=== PATIENT | female | born 1980 | race Caucasian/White ===

== ENCOUNTER 2016-09-12 20:35 | Emergency (ER) ==
[2016-09-12] MEDS ORDERED: ZOFRAN IV ONE (22:42)
[2016-09-12] MEDS ORDERED: NS 1,000 ML IV ONE (22:42)
[2016-09-12] MEDS ORDERED: G.I. COCKTAIL PO ONE (22:42)
[2016-09-12] MEDS ORDERED: MORPHINE IV ONE (22:42)
--- NOTE | 2016-09-12 22:45 | PROVIDER DOCUMENTATION ---
HPI-Abdominal Pain/GI Problem - General Source: patient - History of Present Illness-ABD Abdominal Pain Onset Location: reports: epigastric Pain Radiation: reports: no radiation Quality of Pain: reports: aching Severity in ED: reports: moderate, severe Onset/Duration: reports: 2 days ago Timing: reports: still present Activities at Onset: reports: none Exposure to sick contacts?: No Modifying Factors: improves with: nothing Associated Symptoms: reports: diarrhea, nausea, vomiting. denies: chest pain, fatigue, fever/chills, shortness of breath <Mark Bah - Last Filed: 09/12/16 22:40> <Sara Elena - Last Filed: 09/13/16 02:17> - General Chief Complaint: Epigastric Pain Stated Complaint: ABD PAIN Time Seen by Provider: 09/12/16 22:20 Allergies/Adverse Reactions: Patient Allergies Allergy/AdvReac Type Severity Reaction Status Date / Time amoxicillin trihydrate * Allergy Severe HIVES Verified 05/23/15 15:18 [From Augmentin] levofloxacin [From Levaquin] Allergy Severe HIVES Verified 05/23/15 15:18 moxifloxacin HCl * Allergy Severe HIVES Verified 05/23/15 15:18 [From Avelox] oseltamivir phosphate * Allergy Severe ANAPHYLAXIS Verified 05/23/15 15:18 [From Tamiflu] Penicillins Allergy Severe HIVES Verified 05/23/15 15:18 potassium clavulanate * Allergy Severe HIVES Verified 05/23/15 15:18 [From Augmentin] Sulfa (Sulfonamide Allergy Severe HIVES Verified 05/23/15 15:18 Antibiotics) [Sulfa(Sulfonamide Antibiotics)] antiacids Allergy Severe HIVES Uncoded 05/23/15 15:18 Home Medications: Albuterol 2.5MG/Ipratrop 0.5MG [Duoneb] 3 ml INH Q4-6H PRN PRN 03/18/15 Albuterol Sulfate [Proair Hfa] 8.5 gm IH 4XDAY 03/18/15 Budesonide/Formoterol Fumarate [Symbicort 160-4.5 Mcg Inhaler] 10.2 gm IH BID Cetirizine HCl [Zyrtec] 5 mg PO DAILY 03/18/15 Fluticasone 50 Mcg Nasal [place] [Flonase] 2 spray SEBAS BID 03/18/15 Gabapentin [Neurontin] 300 mg PO DAILY 03/18/15 Omalizumab [Xolair] 150 mg IM ORDERED 03/18/15 Tramadol HCl [Ultram] 50 mg PO Q4-6H PRN PRN 03/18/15 Zolmitriptan [Zomig] 5 mg PO BID PRN 03/18/15 - History of Present Illness-ABD Nature of Presenting Problems: 36 y/o F presents to the ED with abdominal pain for 2 days with diarrhea. Pt says she went to [place] urgent care today and got a liter of fluid and Zofran. She got home and tonight when she ate she vomited again. 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 (Mark Bah) Review of Systems - Adult - REVIEW OF SYSTEMS - ADULT Constitutional: denies: chills, fever Eyes: reports: no symptoms reported Ears, Nose, Mouth & Throat: reports: no symptoms reported Cardiovascular: denies: chest pain, edema Respiratory: denies: cough, shortness of breath, wheezing Gastrointestinal: reports: abdominal pain, diarrhea, nausea, vomiting Genitourinary: reports: no symptoms reported Musculoskeletal: reports: no symptoms reported Integumentary: reports: no symptoms reported Neurological: reports: no symptoms reported Psychiatric: reports: no symptoms reported Endocrine: reports: no symptoms reported Hematologic/Lymphatic: reports: no symptoms reported Allergic/Immunologic: reports: no symptoms reported All Other Systems: Reviewed and Negative <Mark Bah - Last Filed: 09/12/16 22:40> Past History - Adult - PAST MEDICAL HISTORY-ADULT Review of Records: reports: Old Records Reviewed, Nursing Assessment Review, Medications Reviewed, Social history reviewed & non-contributory. Major Childhood Illnesses: reports: denies history Cardiovascular: reports: denies history Respiratory: reports: denies history Gastrointestinal: reports: denies history Obstetrical/Gynecological: reports: denies history Genitourinary: reports: denies history Musculoskeletal: reports: denies history Neurological: reports: denies history Endocrine/Immune: reports: denies history Other Conditions: reports: denies history - PRIOR SURGERIES/PROCEDURES Surgical/Procedure History: reports: , tonsillectomy, orthopedic ( extremity) (right knee), other (gallbladder) - FAMILY HISTORY Family History: reviewed, not pertinent <Mark Bah - Last Filed: 09/12/16 22:40> Physical Exam-General - PHYSICAL EXAM-ADULT Initial Vital Signs Reviewed: Yes - CONSTITUTIONAL General Appearance: appears well, alert, no apparent distress - EYES Eyes: PERRL/EOMI. negative: pink conjunctivae - HEAD, EARS, NOSE, MOUTH & THROAT HENMT: moist mucous membranes, normal ENT inspection, TMs normal, pharynx normal - NECK Neck: non-tender, full range of motion, supple - RESPIRATORY Respiratory: lungs clear, normal breath sounds, no pleuratic chest pain, no respiratory distress, no accessory muscle use - CARDIOVASCULAR Cardiovascular: normal peripheral pulses, regular rate, rhythm - GASTROINTESTINAL (ABDOMEN) Abdominal Exam: normal bowel sounds, soft, tenderness (gernalized tendrness worse over epigastric). negative: distended, guarding, rebound - MUSCULOSKELETAL Back Exam: normal inspection, no CVA tenderness, no vertebral tenderness Extremity: normal range of motion, non-tender, normal gait, normal inspection - SKIN Integumentary: normal color, normal turgor, warm/dry - NEUROLOGIC Neurologic: grossly normal, no motor/sensory deficits - PSYCHIATRIC Psych/Mental Status: normal mood/affect, normal thought content, normal thought process, oriented x 3 <Mark Bah - Last Filed: 09/12/16 22:40> Progress - CT/MRI 1 CT Study: Abdomen, Pelvis Impression: See EMR Report (Vague hypodensity with mild fullness within the head of the pancreas. Consider follow up MR versus short-term followup CT, per Dr. Reyes ([facility] <Sara Elena - Last Filed: 09/13/16 02:17> Departure <Mark Bah - Last Filed: 09/12/16 22:40> - Departure Time of Disposition Order: 02:00 Certified Medical Emergency: Emergent <Sara Elena - Last Filed: 09/13/16 02:17> - Departure DIAGNOSIS: Pancreatic cyst Vomiting Qualifiers: Vomiting type: unspecified Vomiting Intractability: non-intractable Nausea presence: unspecified Qualified Code(s): R11.10 - Vomiting, unspecified UTI (urinary tract infection) Qualifiers: Urinary tract infection type: acute cystitis Hematuria presence: with hematuria Qualified Code(s): N30.01 - Acute cystitis with hematuria Disposition: HOME 01 Condition: Stable Additional Instructions: Follow up with specialist for further management. Take medications as directed. Return if symptoms get worse. ED Follow Up Instructions: You have been treated by a care provider in the Emergency Department. These instructions are being provided to you so you can have an understanding of how to care for yourself upon discharge. Upon discharge from the Emergency Department, you are responsible for making arrangements for follow-up care by a physician of your choice. Take all prescribed medications as directed. Return to the Emergency Department immediately for any new or worsening symptoms. You may call the Physician Referral phone number at [phone] to obtain a list of Physicians who are taking new patients. Prescriptions: Metronidazole 500 mg PO BID #20 tablet Nitrofurantoin Macrocrystal [Nitrofurantoin] 100 mg PO BID #20 capsule Promethazine [Phenergan] 25 mg PO Q6H PRN PRN #20 tablet PRN Reason: Nausea Referrals: [facility] rGace MD [Primary Care Provider] - Sanjiv Holder MD [STAFF PHYSICIAN] - Attestation - Scribe Verification/Attestation Scribe:: Mark Bah Acting as Scribe for:: Sara Elena Scribe documention review:: This chart was documented by a scribe and accurately reflects the service the provider performed and the decisions made by the provider. - Physician/ Mid-level Attestation Patient care was provided by Mid-level provider (PANEL INSTRUMENT REPAIRER/PA):: Yes Mid-level provider:: Sara Elena Mid-level documentation review:: The Mid-level provider documentation, treatment plan and medical decision making was reviewed by the physician who agrees with all treatment and medical decision making by the [facility]. <Mark Bah - Last Filed: 09/12/16 22:40> Physician Attestation
[2016-09-12 22:52] LABS: MANUAL DIFF NEEDED? NO
[2016-09-12 22:54] LABS: BASO% 0.1 % (0.0-0.8); EOS# 0.02 X1000 (0.0-0.7); EOS% 0.2 % (0.0-10.0); HEMATOCRIT 39.4 % (37.0-47.0); HEMOGLOBIN 13.4 g/dL (12.0-16.0); IMM GRAN# 0.04 X1000 (0.0-0.04); IMM GRAN% 0.4 % (0.0-0.5); LYMPH# 1.38 X1000 (1.2-3.4); LYMPH% 13.5 % (20.5-51.1); MCH 29.3 PG (27-31); MONO# 0.72 X1000 (0.11-0.59); MPV 10.3 FL (7.4-10.4); NEUT% 78.8 % (42.2-75.2); PLT 233 X1000 (130-400); RBC 4.58 XMIL (4.2-5.4)
[2016-09-12 23:13] LABS: AGAP 9; ALBUMIN 4.4 g/dL (3.5-5.0); ALKALINE PHOSPHATASE 119 U/L (32-104); AMYLASE 34 U/L (20-200); BUN 13 mg/dL (8-22); CALCIUM 8.8 mg/dL (8.8-10.2); CHLORIDE 103 mmol/L (98-107); COSMO 274; GOT 136 U/L (10-30); GPT 56 U/L (10-36); LIPASE 19 U/L (13-60); POTASSIUM 3.4 mmol/L (3.5-5.1); SODIUM 137 mmol/L (136-145); TCO2 25 mmol/L (25-35); TOTAL PROTEIN 7.3 g/dL (6.3-8.3)
[2016-09-13 00:12] LABS: URINE SOURCE CLEAN CATCH
[2016-09-13 00:21] LABS: BILIRUBIN URINE NEGATIVE (NEGATIVE); BLOOD URINE 3+ (NEGATIVE); CLARITY SL. CLOUDY (CLEAR); COLOR YELLOW; GLUCOSE URINE NEGATIVE (NEGATIVE); LEUKOCYTES URINE 1+ (NEGATIVE); NITRITE URINE NEGATIVE (NEGATIVE); PH URINE 6.5; PROTEIN URINE NEGATIVE (NEGATIVE); UROBILINOGEN URINE 1+(1 mg/dL)
[2016-09-13 00:22] LABS: URINE CULTURE PL NEEDED? YES; URINE EPITHELIAL CELLS <10 /HPF (<10); URINE RBC 20-40 /HPF (<10)
[2016-09-13] MEDS ORDERED: ZOFRAN IV ONE (00:39)
[2016-09-13] MEDS ORDERED: PHENERGAN IV ONE (01:17)
[2016-09-13] MEDS ORDERED: PHENERGAN PO ONE (02:11)
[2016-09-13] MEDS ORDERED: MORPHINE IV ONE (02:11)
[2016-09-13 02:53] VITALS: BP 116/74
--- NOTE | 2016-09-13 12:51 | Diag Imaging Result Document ---
PROCEDURE NAME: CT ABD/PELVIS W/ IV CONT ONLY - 09/12/2016 CT OF THE ABDOMEN WITH INTRAVENOUS CONTRAST: FINDINGS: There are granulomatous-appearing nodules in the right lower lobe posteriorly, which were also present on 01/24/2013. There has been cholecystectomy. There is some mild periportal edema, which can be seen in hepatitis, but this is nonspecific. There is a tiny cyst on image 9 in the right lobe of the liver. The spleen is enlarged measuring 14 cm in AP diameter. This is larger than the 13.3 cm present on 01/24/2013. The pancreas is unremarkable in appearance. There is some fluid throughout the colon. The small bowel is not distended. There is no evidence of significant adenopathy. The adrenal glands and kidneys are without evidence of acute abnormality. CT OF THE PELVIS WITH INTRAVENOUS CONTRAST: FINDINGS: The appendix is normal in appearance. The cecum is somewhat mobile, being in the midline. There has been hysterectomy. There is what appears to be a corpus luteum cyst in the right ovary measuring 1.8 cm in diameter. The regional skeleton appears to be intact. IMPRESSION: Splenomegaly. Fluid in the colon. This is nonspecific but may be associated with enterocolitis. Right ovarian corpus luteum cyst.
== END 2016-09-13 03:01 | disposition home or self-care (01) ==
LOC: P.ED 20:35
DX: N30.01 Acute cystitis with hematuria (principal); K86.2 Cyst of pancreas; R11.2 Nausea with vomiting, unspecified; R10.13 Epigastric pain; R19.7 Diarrhea, unspecified; Z79.899 Other long term (current) drug therapy; Z79.51 Long term (current) use of inhaled steroids
CPT/HCPCS: 74177; 80053; 81001; 82150; 83690; 85025; 87088; 96361; 96374; 96375; 96376; J2270; J2405; J2550; J7030; Q9967